=== PATIENT | female | born 1935 | race American Indian/Alaskan Native ===

== ENCOUNTER 2018-07-08 13:03 | Outpatient (CLI) | payer MEDICARE ==
[2018-07-08] MEDS ORDERED: XYLOCAINE TOPICAL 4% TP ONE ×2 (14:03→16:15)
[2018-07-08 16:35] LABS: Hematocrit 33.9 % (30.3-42.9); Hemoglobin 11.1 gm/dl (10.1-14.3)
== END 2018-07-08 13:04 | disposition home or self-care (01) ==
LOC: WOUND 13:03
PROVIDERS: ATTEND Surgery
DX: E11.622 Type 2 diabetes mellitus with other skin ulcer (principal); L97.212 Non-pressure chronic ulcer of right calf with fat layer exposed; L97.222 Non-pressure chronic ulcer of left calf with fat layer exposed; J44.9 Chronic obstructive pulmonary disease, unspecified; E11.40 Type 2 diabetes mellitus with diabetic neuropathy, unspecified; I11.0 Hypertensive heart disease with heart failure; I50.9 Heart failure, unspecified; E78.00 Pure hypercholesterolemia, unspecified; Z95.1 Presence of aortocoronary bypass graft; Z90.710 Acquired absence of both cervix and uterus; Z96.652 Presence of left artificial knee joint; Z87.891 Personal history of nicotine dependence
CPT/HCPCS: 11042; 11045; 36415; 83036; 85014; 85018; G0463; 99215

== ENCOUNTER 2018-07-22 11:09 | Outpatient (CLI) | payer MEDICARE ==
[2018-07-22] MEDS ORDERED: XYLOCAINE TOPICAL 4% TP ONE ×2 (11:52→12:02)
[2018-07-22] MEDS ORDERED: AD OINTMENT TP PRN (12:02)
[2018-07-22] MEDS ORDERED: AD OINTMENT TP ONE (12:23)
[2018-07-24] MEDS ORDERED: AD OINTMENT TP SCH (10:00)
== END 2018-07-22 11:10 | disposition home or self-care (01) ==
LOC: WOUND 11:09
PROVIDERS: ATTEND Surgery
DX: E11.622 Type 2 diabetes mellitus with other skin ulcer (principal); L97.212 Non-pressure chronic ulcer of right calf with fat layer exposed; L97.222 Non-pressure chronic ulcer of left calf with fat layer exposed; J44.9 Chronic obstructive pulmonary disease, unspecified; E11.40 Type 2 diabetes mellitus with diabetic neuropathy, unspecified; I11.0 Hypertensive heart disease with heart failure; I50.9 Heart failure, unspecified; E78.00 Pure hypercholesterolemia, unspecified; Z95.1 Presence of aortocoronary bypass graft; Z90.710 Acquired absence of both cervix and uterus; Z96.652 Presence of left artificial knee joint; Z87.891 Personal history of nicotine dependence
CPT/HCPCS: A6250

== ENCOUNTER 2018-07-26 10:45 | Outpatient (CLI) | payer MEDICARE ==
[2018-07-26] MEDS ORDERED: XYLOCAINE TOPICAL 4% TP ONE ×2 (11:42→12:50)
== END 2018-07-26 10:46 | disposition home or self-care (01) ==
LOC: WOUND 10:45
PROVIDERS: ATTEND Surgery
DX: L97.222 Non-pressure chronic ulcer of left calf with fat layer exposed (principal); E11.622 Type 2 diabetes mellitus with other skin ulcer; L97.212 Non-pressure chronic ulcer of right calf with fat layer exposed; J44.9 Chronic obstructive pulmonary disease, unspecified; E11.40 Type 2 diabetes mellitus with diabetic neuropathy, unspecified; I11.0 Hypertensive heart disease with heart failure; I50.9 Heart failure, unspecified; E78.00 Pure hypercholesterolemia, unspecified; Z95.1 Presence of aortocoronary bypass graft; Z90.710 Acquired absence of both cervix and uterus; Z96.652 Presence of left artificial knee joint; Z87.891 Personal history of nicotine dependence

== ENCOUNTER 2018-08-02 10:40 | Outpatient (CLI) | payer MEDICARE ==
[2018-08-02] MEDS ORDERED: XYLOCAINE TOPICAL 4% TP ONE ×2 (10:53→11:30)
== END 2018-08-02 10:41 | disposition home or self-care (01) ==
LOC: WOUND 10:40
PROVIDERS: ATTEND Surgery
DX: E11.622 Type 2 diabetes mellitus with other skin ulcer (principal); L97.212 Non-pressure chronic ulcer of right calf with fat layer exposed; L97.222 Non-pressure chronic ulcer of left calf with fat layer exposed; J44.9 Chronic obstructive pulmonary disease, unspecified; E11.40 Type 2 diabetes mellitus with diabetic neuropathy, unspecified; I11.0 Hypertensive heart disease with heart failure; I50.9 Heart failure, unspecified; E78.00 Pure hypercholesterolemia, unspecified; Z95.1 Presence of aortocoronary bypass graft; Z90.710 Acquired absence of both cervix and uterus; Z96.652 Presence of left artificial knee joint; Z87.891 Personal history of nicotine dependence

== ENCOUNTER 2018-08-12 09:07 | Outpatient (CLI) | payer MEDICARE, OTHER ==
[2018-08-12] MEDS ORDERED: XYLOCAINE TOPICAL 4% TP ONE ×2 (09:37→09:57)
== END 2018-08-12 09:08 | disposition home or self-care (01) ==
LOC: WOUND 09:07
PROVIDERS: ATTEND Surgery
DX: E11.622 Type 2 diabetes mellitus with other skin ulcer (principal); L97.212 Non-pressure chronic ulcer of right calf with fat layer exposed; L97.222 Non-pressure chronic ulcer of left calf with fat layer exposed; J44.9 Chronic obstructive pulmonary disease, unspecified; E11.40 Type 2 diabetes mellitus with diabetic neuropathy, unspecified; I11.0 Hypertensive heart disease with heart failure; I50.9 Heart failure, unspecified; E78.00 Pure hypercholesterolemia, unspecified; Z95.1 Presence of aortocoronary bypass graft; Z90.710 Acquired absence of both cervix and uterus; Z96.652 Presence of left artificial knee joint; Z87.891 Personal history of nicotine dependence

== ENCOUNTER 2019-09-05 14:08 | Outpatient (CLI) | payer MEDICARE ==
--- NOTE | 2019-09-05 15:14 | XRay Report ---
RIGHT HAND 3 IEW(S) INDICATION / CLINICAL INFORMATION: Right hand swelling for 2 weeks. COMPARISON: None available. FINDINGS: BONES / JOINT(S): No acute fracture or subluxation. 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 No osseous erosions. SOFT TISSUES: Moderate soft tissue swelling of the hand especially along the dorsum of the hand. ADDITIONAL FINDINGS: None. Signer Name: Feliciano Paul MD Signed: 09/05/2019 3:09 PM Workstation Name: [id number]
== END 2019-09-05 14:09 | disposition home or self-care (01) ==
LOC: SPVIMAG 14:08
PROVIDERS: ATTEND Internal Medicine
DX: M25.441 Effusion, right hand (principal); M18.9 Osteoarthritis of first carpometacarpal joint, unspecified